=== PATIENT | female | born 1990 | race African-American/Black ===

== ENCOUNTER 2020-01-05 17:29 | Emergency (ER) | payer OTHER ==
[~2020-01-05] VITALS: Ht 160 cm; Wt 64.5 kg
[2020-01-05 18:13] VITALS: BP 106/64
== END 2020-01-05 19:20 | disposition home or self-care (01) ==
LOC: EMS 17:32
DX: R05 Cough (principal); M79.10 Myalgia, unspecified site; Z20.828 Contact with and (suspected) exposure to other viral communicable diseases
CPT/HCPCS: 87635